=== PATIENT | female | born 1970 | race Caucasian/White ===

== ENCOUNTER → 2017-05-14 | Outpatient (CLI) | payer BC ==
[2015-04-27 11:19] VITALS: BP 124/70
[~2017-05-14] MED LIST: OLAN10TA9 PO; OLAN20TA7 PO; OLAN5TAB9 PO; OXYC-328 PO; PANT20TA58 PO; PREG150C PO
--- NOTE | 2017-05-14 16:34 | RAD ---
Cervical spine, 2 views, 05/14/2017: History: Neck pain There is moderate anterior and posterior marginal spurring throughout the mid and lower cervical spine. There are moderate hypertrophic degenerative changes involving multiple facet joints bilaterally. No fracture or subluxation is evident. The prevertebral soft tissues are unremarkable. IMPRESSION: 1. Moderate multilevel degenerative change. 2. No acute bony abnormality is detected.
== END | disposition home or self-care (01) ==
LOC: DXRADRC 14:39
PROVIDERS: ATTEND Family Medicine
DX: M47.892 Other spondylosis, cervical region (principal); M79.7 Fibromyalgia
CPT/HCPCS: 72040

== ENCOUNTER → 2018-03-13 | Outpatient (CLI) | payer BC ==
[2015-04-27 11:19] VITALS: BP 124/70
--- NOTE | 2018-03-13 14:39 | RAD ---
EXAM: Chest, 2 views. HISTORY: Shortness of breath. COMPARISON: None. FINDINGS: Frontal and lateral views the chest are obtained. There is no infiltrate, pleural effusion or pneumothorax. The heart is normal in size. IMPRESSION: No acute pulmonary finding. Electronically signed by: Lindy Dejesus MD (03/13/2018 2:36 PM) [place] [id number]
== END | disposition home or self-care (01) ==
LOC: PMG 14:16
PROVIDERS: ATTEND Family Medicine
DX: R06.02 Shortness of breath (principal); F17.200 Nicotine dependence, unspecified, uncomplicated
CPT/HCPCS: 71046